=== PATIENT | male | born 1985 | race Caucasian/White ===

== ENCOUNTER 2024-11-30 17:58 | Emergency (ER) | payer OTHER, SELFPAY ==
[2024-11-30 18:09] VITALS: BP 125/82; PULSE 80; RESP 16; TEMP 36.2; O2SAT 98
--- NOTE | 2024-11-30 18:14 | ED.FALL ---
HPI - Fall General Chief Complaint: Fall Stated Complaint: INJURED R ELBOW/L BACK/SIDE INJURY Time Seen by Provider: 11/30/24 18:18 Source: patient and RN notes reviewed Mode of arrival: ambulatory Limitations: no limitations History of Present Illness HPI Narrative: 39-year-old male presents with concern for fall. 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 He reports he landed on his right elbow in rolled onto his left back. He is reporting abrasions to the elbow and back. He denies weakness, decreased strength, sensation, range of motion in any extremity. He denies loss consciousness. He denies trouble breathing. MD complaint: fall Related Data Home Medications ?Medication ?Instructions ?Recorded ?Confirmed ?Last Taken ?Type escitalopram oxalate 5 mg tablet mg 11/30/24 Unknown History Allergies Allergy/AdvReac Type Severity Reaction Status Date / Time No Known Allergies Allergy Verified 11/30/24 18:21 Review of Systems Review of Systems: CONSTITUTIONAL: Denies malaise, chills, sweats, or fever. EYES: Denies redness, or discharge. ENT: Denies rhinorrhea, congestion, swollen lips, swollen tongue CARDIOVASCULAR: Denies chest pain, palpitations, or edema. RESPIRATORY: Denies cough or dyspnea. GASTROINTESTINAL: Denies abdominal pain, nausea, vomiting SKIN: Reports abrasions MUSCULOSKELETAL: Denies musculoskeletal pain NEUROLOGIC: Denies headache. All systems reviewed & are unremarkable except as noted in HPI and below PMFSH Comments At time of signature, agree with nursing past medical, surgical, social and family history. There is no relevant family history pertinent to the presenting complaint Exam Narrative: GENERAL: Well-appearing, well-nourished, and in no acute distress. HEAD: Normocephalic, atraumatic. EYES: PERRLA, conjunctivae clear, and EOMI. ENT: Mucous membranes moist NECK: Supple. No lymphadenopathy CHEST: Clear to auscultation. No respiratory distress. HEART: Regular rate and rhythm. SKIN: Warm, dry. Superficial abrasions noted to the right elbow, strep of abrasion noted to the left back MUSC: Grossly normal range of motion in all extremities, no skeletal tenderness in the right elbow or the ribs. NEURO: Alert and oriented x3. PSYCH: Normal mood and affect Course Course Emergency Course: Patient is aware of diagnosis, understands and agrees to treatment plan. Anticipatory guidance given. Patient agrees to follow-up as directed and is aware of reasons to seek care at the emergency department. Portions of this record may have been created with voice recognition software Level of Care: Express Care Visit Vital Signs Vital signs: Vital Signs Temperature 97.1 F L 11/30/24 18:09 Pulse Rate 80 11/30/24 18:09 Respiratory Rate 16 11/30/24 18:09 Blood Pressure 125/82 11/30/24 18:09 Pulse Oximetry 98 11/30/24 18:09 Temperature 97.1 F L 11/30/24 18:09 Pulse Rate 80 11/30/24 18:09 Respiratory Rate 16 11/30/24 18:09 Blood Pressure 125/82 11/30/24 18:09 Pulse Oximetry 98 11/30/24 18:09 Reviewed. MDM - Fall MDM Narrative Medical decision making narrative: I evaluated this patient in the [facility] care. History is obtained from patient who is an independent historian and physical exam was performed.? Available medical records were reviewed. ? Exam findings and relevant testing show no acute concerns or changes; patient is non-toxic appearing and is in no distress. ? Differential diagnosis and treatment plan were discussed with the patient. Patient agrees with discussion and after shared medical decision making agrees with plan of care. All questions were answered to the patient's satisfaction. Patient is appropriate for outpatient treatment and follow-up. Critical Care Time Critical Care Time Critical Care Time: No Discharge Plan Discharge Clinical Impression: Abrasion Patient Disposition: Home Condition: Stable Instructions: Abrasion (ED) Additional Instructions: Clean your wounds with soap and water. Not use hydrogen peroxide or alcohol clean them. You can apply Neosporin to your abrasions and bandages if needed. If you notice any redness, swelling, purulent discharge from the wound you should be re-evaluated. Please follow with your primary care doctor as needed. Patient Language: Serbian Prescriptions: No Action escitalopram oxalate 5 mg tablet Follow-up/Referrals: PHYSICIAN,CARPENTRY SUPERVISOR [Primary Care Provider, Internal Medicine] Time of Disposition: 18:27
== END 2024-11-30 18:28 | disposition home or self-care (01) ==
PROVIDERS: Emergency Provider Nurse Practitioner
DX: S50.311A Abrasion of right elbow, initial encounter (principal); S20.412A Abrasion of left back wall of thorax, initial encounter; V68.4XXA Person boarding or alighting a heavy transport vehicle injured in noncollision transport accident, initial encounter; F41.9 Anxiety disorder, unspecified
CPT/HCPCS: 99212; G0463